=== PATIENT | female | born 1970 | race Caucasian/White ===

== ENCOUNTER 2017-01-20 21:20 | Emergency (ER) | payer BC ==
[2017-01-20 21:46] VITALS: BP 155/114
[2017-01-20] MEDS ORDERED: Morphine 4 MG/ML Syringe IVPUSH PRN (21:51)
[2017-01-20] MEDS ORDERED: Ketorolac 30 MG/ML SDV IVPUSH ONE (21:51)
[2017-01-20] MEDS ORDERED: Sodium Chloride 0.9% 1,000 ML IV ONE (21:51)
[2017-01-20] MEDS ORDERED: Ondansetron 4 MG/2 ML SDV IVPUSH ONE (21:51)
--- NOTE | 2017-01-20 22:55 | EDM.PDOC ---
[id number]: KIDNEY STONE PAIN Time Seen by Provider: 01/20/17 21:51 Source of Information: Reports: Patient History Limitations: Reports: No Limitations - History of Present Illness INITIAL COMMENTS - FREE TEXT/NARRATIVE: 46 y/o F with hx known left ureterolithiasis and scheduled lithotripsy for 4 days from now presents with uncontrolled L flank pain. Has had pain x [address] Santiago a couple of weeks ago and was diagnosed with a large ureterolithiasis by [facility]. Has been taking oxycodone which previously controlled pain. Now with severe pain x 4 hrs with no relief after oxycodone 5mg x 2 about 3 hrs ago. Pain is left sided, severe, nonradiating, no exacerbating or relieving factors. No fever. No vomiting. No dysuria or hematuria. No cough/CP /SOB. 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: oxycodone Flank Pain Score (Numeric/FACES): 8 - Related Data Allergies Allergy/AdvReac Type Severity Reaction Status Date / Time formaldehyde Allergy Rash Verified 01/20/17 21:50 Home Meds: Home Meds LORazepam [Ativan] 1 mg PO ONETIME #1 tablet 12/08/15 [Rx] Tamsulosin HCl [Flomax] 0.4 mg PO DAILY #10 cap.er.24h 12/08/15 [Rx] Topiramate [Topiramate] 50 mg PO BEDTIME 12/08/15 [History] oxyCODONE HCl/Acetaminophen [Percocet 5-325 mg Tablet] 1 - 2 each PO Q6HR PRN # 20 tablet 12/08/15 [Rx] Past Medical History - Past Health History Medical/Surgical History: Denies Medical/Surgical History HEENT History: Reports: Allergic Rhinitis, Impaired Vision Other HEENT History: Contacts Genitourinary History: Reports: Renal Calculus, Other (See Below) Other Genitourinary History: LEft flank pain and 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: Neurological History: Reports: Migraines - Infectious Disease History Infectious Disease History: Reports: Chicken Pox - Past Surgical History HEENT Surgical History: Reports: Adenoidectomy, Tonsillectomy Social & Family History - Family History Family Medical History: Noncontributory - Tobacco Use Smoking Status *Q: Current Some Day Smoker Years of Tobacco use: 30 Packs/Tins Daily: 0.2 - Caffeine Use Caffeine Use: Reports: Coffee, Energy Drinks, Soda, Tea - Alcohol Use Days Per Week of Alcohol Use: 2 Number of Drinks Per Day: 3 Total Drinks Per Week: 6 - Recreational Drug Use Recreational Drug Use: No ED ROS GENERAL - Review of Systems Review Of Systems: See Below Constitutional: Denies: Fever Respiratory: Denies: Shortness of Breath Cardiovascular: Denies: Chest Pain GI/Abdominal: Denies: Vomiting : Reports: Flank Pain. Denies: Dysuria Musculoskeletal: Reports: Back Pain ED EXAM, RENAL/ - Physical Exam Exam: See Below Exam Limited By: No Limitations General Appearance: Alert, WD/WN, Mild Distress Eye Exam: Bilateral Eye: Normal Inspection Ears: Normal External Exam Nose: Normal Inspection Throat/Mouth: Normal Inspection, Normal Voice, No Airway Compromise Head: Atraumatic, Normocephalic Neck: Normal Inspection, Supple Respiratory/Chest: No Respiratory Distress, Lungs Clear, Normal Breath Sounds Cardiovascular: Normal Peripheral Pulses, Regular Rate, Rhythm, No Edema, No Murmur GI/Abdominal: Soft, Non-Tender, No Distention. No: Rebound Back Exam: CVA Tenderness (L). No: CVA Tenderness (R) Extremities: Normal Inspection Neurological: Alert, Oriented, Normal Cognition Psychiatric: Normal Affect, Normal Mood Skin Exam: Warm, Dry, Intact, Normal Color, No Rash Course - Vital Signs Last Recorded V/S: Last Vital Signs Temp 36.9 C 01/20/17 21:40 Pulse 70 01/20/17 21:40 Resp 18 01/20/17 21:40 BP 155/114 H 01/20/17 21:40 Pulse Ox 100 01/20/17 21:40 - Orders/Labs/Meds Orders: Active Orders 24 hr Category Date Time Status Morphine Med 01/20/17 21:51 Active 4 mg IVPUSH Q2H PRN Medication Orders Morphine Sulfate (Morphine) 4 mg IVPUSH Q2H PRN PRN Reason: Pain Last Admin: 01/20/17 22:26 Dose: 4 mg Labs: Laboratory Tests 01/20/17 01/20/17 01/20/17 Range/Units 22:10 22:10 22:10 WBC 13.04 H (3.98-10.04) K/mm3 RBC 4.01 (3.98-5.22) M/mm3 Hgb 12.7 (11.2-15.7) gm/L Hct 37.7 (34.1-44.9) % MCV 94.0 (79.4-94.8) fl MCH 31.7 (25.6-32.2) pg MCHC 33.7 (32.2-35.5) g/dl RDW Std Deviation 42.4 (36.4-46.3) fL Plt Count 234 (182-369) K/mm3 MPV 10.5 (9.4-12.3) fl Neut % (Auto) 66.8 (34.0-71.1) % Lymph % (Auto) 23.0 (19.3-51.7) % [place] % (Auto) 8.6 (4.7-12.5) % Eos % (Auto) 1.2 (0.7-5.8) Baso % (Auto) 0.2 (0.1-1.2) % Neut # (Auto) 8.70 H (1.56-6.13) K/mm3 Lymph # (Auto) 3.00 (1.18-3.74) K/mm3 [place] # (Auto) 1.12 H (0.24-0.36) K/mm3 Eos # (Auto) 0.16 (0.04-0.36) K/mm3 Baso # (Auto) 0.03 (0.01-0.08) K/mm3 Sodium 140 (136-145) mEq/L Potassium 3.9 (3.5-5.1) mEq/L Chloride 108 H (98-107) mEq/L Carbon Dioxide 27 (21-32) mEq/L Anion Gap 8.9 (5-15) BUN 23 H (7-18) mg/dL Creatinine 1.2 H (0.55-1.02) mg/dL Est Cr Clr Drug Dosing 55.42 mL/min Estimated GFR (MDRD) 49 (>60) mL/min BUN/Creatinine Ratio 19.2 H (14-18) Glucose 100 (74-106) mg/dL Calcium 9.2 (8.5-10.1) mg/dL Total Bilirubin 0.2 (0.2-1.0) mg/dL AST 19 (15-37) U/L ALT 16 (14-59) U/L Alkaline Phosphatase 55 (46-116) U/L Total Protein 6.9 (6.4-8.2) g/dl Albumin 3.6 (3.4-5.0) g/dl Globulin 3.3 gm/dL Albumin/Globulin Ratio 1.1 (1-2) Urine Color Yellow (Yellow) Urine Appearance Clear (Clear) Urine pH 7.0 (5.0-8.0) Ur Specific [place] 1.020 (1.005-1.030) Urine Protein Trace H (Negative) Urine Glucose (UA) Negative (Negative) Urine Ketones Negative (Negative) Urine Occult Blood 2+ H (Negative) Urine Nitrite Negative (Negative) Urine Bilirubin Negative (Negative) Urine Urobilinogen 0.2 (0.2-1.0) Ur Leukocyte Esterase Trace H (Negative) Urine RBC 20-30 H (0-5) /hpf Urine WBC 0-5 (0-5) /hpf Ur Epithelial Cells 10-20 H (0-5) /hpf Amorphous Sediment Moderate H (NOT SEEN) /hpf Urine Bacteria Moderate H (FEW) /hpf Urine Mucus Not seen (FEW) /hpf Meds: Medications Generic Name Dose Route Start Last Admin Trade Name Freq PRN Reason Stop Dose Admin Morphine Sulfate 4 mg 01/20/17 21:51 01/20/17 22:26 Morphine IVPUSH 4 mg Q2H PRN Administration Pain Discontinued Medications Generic Name Dose Route Start Last Admin Trade Name Freq PRN Reason Stop Dose Admin Sodium Chloride 1,000 mls @ 1,000 mls/hr 01/20/17 21:51 01/20/17 22:22 Normal Saline IV 01/20/17 22:50 1,000 mls/hr ONETIME ONE Administration Ketorolac Tromethamine 30 mg 01/20/17 21:51 01/20/17 22:25 Toradol IVPUSH 01/20/17 21:52 30 mg ONETIME ONE Administration Ondansetron HCl 4 mg 01/20/17 21:51 01/20/17 22:22 Zofran IVPUSH 01/20/17 21:52 4 mg ONETIME ONE Administration - Re-Assessments/Exams Free Text/Narrative Re-Assessment/Exam: 01/20/17 23:16 Labs show wbc 13 but no left shift, creatinine 1.2, + microscopic hematuria, no evidence of urinary infection. Patient feels much better after torodol, morphine, and IVF. Would like to go home. Has lithotripsy scheduled with Dr. Santiago for this week . Has adequate supply of pain meds at home. Discussed return precautions. Departure - Departure Time of Disposition: 22:54 Disposition: Home, Self-Care Clinical Impression: Ureterolithiasis - Discharge Information Instructions: Kidney Stones Referrals: Shelby Frazier PA-C [Primary Care Provider] - Forms: ED Department Discharge Additional Instructions: 1. Follow up with Dr. Santiago this week as planned 2. Continue your usual home medications for pain 3. Return to the ED if you have worsening severe pain, fever, vomiting without keeping fluids down, or other concerning symptoms - My Orders Last 24 Hours: My Active Orders 01/20/17 21:51 Morphine 4 mg IVPUSH Q2H PRN - Assessment/Plan Last 24 Hours: My Active Orders 01/20/17 21:51 Morphine 4 mg IVPUSH Q2H PRN
== END 2017-01-20 23:00 | disposition home or self-care (01) ==
LOC: JD.ED 21:20
DX: N20.1 Calculus of ureter (principal); F17.210 Nicotine dependence, cigarettes, uncomplicated; Z79.899 Other long term (current) drug therapy; Z88.8 Allergy status to other drugs, medicaments and biological substances; Z87.442 Personal history of urinary calculi; Z98.890 Other specified postprocedural states
CPT/HCPCS: 36415; 80053; 81001; 85025; 96361; 96374; 96375; 99284; J1885; J2270; J2405; J7040

== ENCOUNTER 2019-09-01 14:06 | Emergency (ER) | payer OTHER ==
[2019-09-01] MEDS ORDERED: Sodium Chloride 0.9% 10 ML Syringe FLUSH PRN (14:32)
[2019-09-01] MEDS ORDERED: Ketorolac 30 MG/ML SDV IVPUSH ONE (14:35)
[2019-09-01] MEDS ORDERED: Ondansetron 4 MG/2 ML SDV IVPUSH ONE (14:35)
[2019-09-01] MEDS ORDERED: HYDROmorphone 0.5 MG/0.5 ML Syringe IVPUSH ONE (14:35)
--- NOTE | 2019-09-01 14:42 | EDM.PDOC ---
ED HPI GENERAL MEDICAL PROBLEM - General Chief Complaint: Flank Pain Stated Complaint: flank pain Time Seen by Provider: 09/01/19 14:12 Source of Information: Reports: Patient History Limitations: Reports: No Limitations - History of Present Illness INITIAL COMMENTS - FREE TEXT/NARRATIVE: Patient is a 48-year-old female who presents with complaints of left-sided flank pain that began last night. She describes it as a constant pain, however does occasionally worsen and then let up. She has a history of kidney stones and states that this feels similar to her kidney stones in the past. Denies any blood in her urine. States she has felt cold over the last couple days, however denies any known fever. She has been nauseous with no vomiting or diarrhea. Left Flank Pain Score (Numeric/FACES): 8 - Related Data Allergies Allergy/AdvReac Type Severity Reaction Status Date / Time formaldehyde Allergy Rash Verified 03/31/18 13:01 Home Meds: Home Meds Topiramate 100 mg PO BID 12/08/15 [History] Acetaminophen/oxyCODONE [Percocet 325-5 MG] 1 each PO Q4H PRN #10 tab 09/01/19 [ Rx] Ondansetron [Zofran ODT] 4 mg PO Q6H PRN #10 tab.dis 09/01/19 [Rx] Tamsulosin [Tamsulosin 24 Hr] 0.4 mg PO DAILY #14 cap.er 09/01/19 [Rx] traMADol [Ultram] 50 mg PO Q4H PRN #15 tab 09/01/19 [Rx] Past Medical History - Past Health History Medical/Surgical History: Denies Medical/Surgical History HEENT History: Reports: Allergic Rhinitis, Impaired Vision Other HEENT History: Contacts Genitourinary History: Reports: Renal Calculus, Other (See Below) Other Genitourinary History: LEft flank pain and blood in urine [employer]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 ED EXAM,LOWER BACK PAIN/INJURY - Physical Exam Exam: See Below Exam Limited By: No Limitations General Appearance: Alert, WD/WN, No Apparent Distress Respiratory/Chest: No Respiratory Distress, Lungs Clear, Normal Breath Sounds, No Accessory Muscle Use, Chest Non-Tender Cardiovascular: Normal Peripheral Pulses, Regular Rate, Rhythm, No Edema, No Gallop, No JVD, No Murmur, No Rub Back Exam: Normal Inspection, Full Range of Motion, CVA Tenderness (L). No: CVA Tenderness (R) Neurological: Alert, Normal Mood/Affect, Normal Dorsiflexion, CN II-XII Intact, Normal Plantar Flexion, Normal Gait, Normal Reflexes, No Motor/Sensory Deficits , Oriented x 3 Psychiatric: Normal Affect, Normal Mood Skin Exam: Warm, Dry, Intact, Normal Color, No Rash Course - Vital Signs Last Recorded V/S: Last Vital Signs Temp 98.1 F 09/01/19 14:22 Pulse 84 09/01/19 14:22 Resp 16 09/01/19 14:22 BP 144/107 H 09/01/19 14:22 Pulse Ox 100 09/01/19 14:22 - Orders/Labs/Meds Orders: Active Orders 24 hr Category Date Time Status Peripheral IV Care [RC] . DIRECTED Care 09/01/19 14:32 Active Sodium Chloride 0.9% [Normal Saline] 1,000 ml Med 09/01/19 14:45 Active IV ASDIRECTED Sodium Chloride 0.9% [Saline Flush] Med 09/01/19 14:32 Active 10 ml FLUSH ASDIRECTED PRN Peripheral IV Insertion Adult [OM.PC] Stat Oth 09/01/19 14:32 Ordered Medication Orders Sodium Chloride (Normal Saline) 1,000 mls @ 999 mls/hr IV ASDIRECTED RAJWINDER Last Admin: 09/01/19 14:52 Dose: 999 mls/hr Sodium Chloride (Saline Flush) 10 ml FLUSH ASDIRECTED PRN PRN Reason: Keep Vein Open Last Admin: 09/01/19 14:25 Dose: 10 ml Labs: Laboratory Tests 09/01/19 09/01/19 09/01/19 Range/Units 14:15 14:25 14:25 WBC 14.79 H (3.98-10.04) K/mm3 RBC 4.44 (3.98-5.22) M/mm3 Hgb 14.0 (11.2-15.7) gm/dl Hct 42.4 (34.1-44.9) % MCV 95.5 H (79.4-94.8) fl MCH 31.5 (25.6-32.2) pg MCHC 33.0 (32.2-35.5) g/dl RDW Std Deviation 44.9 (36.4-46.3) fL Plt Count 306 (182-369) K/mm3 MPV 10.6 (9.4-12.3) fl Neut % (Auto) 75.6 H (34.0-71.1) % Lymph % (Auto) 14.1 L (19.3-51.7) % [place] % (Auto) 8.9 (4.7-12.5) % Eos % (Auto) 1.0 (0.7-5.8) Baso % (Auto) 0.2 (0.1-1.2) % Neut # (Auto) 11.17 H (1.56-6.13) K/mm3 Lymph # (Auto) 2.09 (1.18-3.74) K/mm3 [place] # (Auto) 1.32 H (0.24-0.36) K/mm3 Eos # (Auto) 0.15 (0.04-0.36) K/mm3 Baso # (Auto) 0.03 (0.01-0.08) K/mm3 Manual Slide Review Normal smear Sodium 141 (136-145) mEq/L Potassium 3.5 (3.5-5.1) mEq/L Chloride 107 (98-107) mEq/L Carbon Dioxide 22 (21-32) mEq/L Anion Gap 15.5 H (5-15) BUN 15 (7-18) mg/dL Creatinine 1.1 H (0.55-1.02) mg/dL Est Cr Clr Drug Dosing 56.59 mL/min Estimated GFR (MDRD) 53 (>60) mL/min BUN/Creatinine Ratio 13.6 L (14-18) Glucose 91 (74-106) mg/dL Calcium 9.0 (8.5-10.1) mg/dL Total Bilirubin 0.4 (0.2-1.0) mg/dL AST 20 (15-37) U/L ALT 22 (14-59) U/L Alkaline Phosphatase 71 (46-116) U/L C-Reactive Protein 1.0 (<1.0) mg/dL Total Protein 7.5 (6.4-8.2) g/dl Albumin 4.1 (3.4-5.0) g/dl Globulin 3.4 gm/dL Albumin/Globulin Ratio 1.2 (1-2) Urine Color Yellow (Yellow) Urine Appearance Clear (Clear) Urine pH 6.5 (5.0-8.0) Ur Specific [place] 1.025 (1.005-1.030) Urine Protein Negative (Negative) Urine Glucose (UA) Negative (Negative) Urine Ketones Negative (Negative) Urine Occult Blood 2+ H (Negative) Urine Nitrite Negative (Negative) Urine Bilirubin Negative (Negative) Urine Urobilinogen 0.2 (0.2-1.0) Ur Leukocyte Esterase Negative (Negative) Urine RBC 40-50 H (0-5) /hpf Urine WBC 0-5 (0-5) /hpf Ur Squamous Epith Cells 5-10 H (0-5) /hpf Urine Bacteria Few (FEW) /hpf Urine Mucus Not seen (FEW) /hpf Meds: Medications Generic Name Dose Route Start Last Admin Trade Name Freq PRN Reason Stop Dose Admin Sodium Chloride 1,000 mls @ 999 mls/hr 09/01/19 14:45 09/01/19 14:52 Normal Saline IV 999 mls/hr ASDIRECTED RAJWINDER Administration Sodium Chloride 10 ml 09/01/19 14:32 09/01/19 14:25 Saline Flush FLUSH 10 ml ASDIRECTED PRN Administration Keep Vein Open Discontinued Medications Generic Name Dose Route Start Last Admin Trade Name Freq PRN Reason Stop Dose Admin Hydromorphone HCl 0.5 mg 09/01/19 14:35 09/01/19 14:50 Dilaudid IVPUSH 09/01/19 14:36 0.5 mg ONETIME ONE Administration Ketorolac Tromethamine 30 mg 09/01/19 14:35 09/01/19 14:48 Toradol IVPUSH 09/01/19 14:36 30 mg ONETIME ONE Administration Ondansetron HCl 4 mg 09/01/19 14:35 09/01/19 14:46 Zofran IVPUSH 09/01/19 14:36 4 mg ONETIME ONE Administration Tamsulosin HCl 0.4 mg 09/01/19 16:18 Flomax PO 09/01/19 16:19 ONETIME ONE - Re-Assessments/Exams Free Text/Narrative Re-Assessment/Exam: 09/01/19 16:09 Hematology was grossly unremarkable. Urine was positive for occult blood but negative for any signs of infection. CT of the abdomen pelvis shows a 6.3 mm obstructing stone within the proximal left ureter near the UPJ. Discussed these findings with the patient. She states that she thinks her last stone that had any lithotripsy was around [address] Santiago was the urologist who assisted her with this. Discussed that it is a possibility that she may not be able to pass the stone on her own. Recommend that she call to schedule an appointment with Dr. Santiago when his office opens tomorrow. I will send a prescription for Percocet for pain, Zofran for nausea, and Flomax.. 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 I will also send a prescription for tramadol. Discharge instructions as documented. Departure - Departure Time of Disposition: 16:11 Disposition: Home, Self-Care 01 Condition: Fair Clinical Impression: Kidney stone - Discharge Information *PRESCRIPTION DRUG MONITORING PROGRAM REVIEWED*: No *COPY OF PRESCRIPTION DRUG MONITORING REPORT IN PATIENT VANNA: No Prescriptions: Acetaminophen/oxyCODONE [Percocet 325-5 MG] 1 each PO Q4H PRN #10 tab PRN Reason: Pain Ondansetron [Zofran ODT] 4 mg PO Q6H PRN #10 tab.dis PRN Reason: Nausea/Vomiting Tamsulosin [Tamsulosin 24 Hr] 0.4 mg PO DAILY #14 cap.er traMADol [Ultram] 50 mg PO Q4H PRN #15 tab PRN Reason: Pain Instructions: Kidney Stones, [id number] Referrals: Marianela Lee NP [Primary Care Provider] - Jessee Santiago MD [Physician] - Forms: ED Department Discharge Additional Instructions: You were seen in the emergency department today for left-sided flank pain that worsened last night. CT does show a 6.3 mm obstructing stone in your left ureter near the kidney. Prescriptions for Percocet, tramadol, Zofran, and Flomax have been sent to [facility] in [place]. Take these medications as prescribed; however, ensure that you are not taking the Percocet and tramadol together. Do not drive for 12 hours after taking the Percocet or tramadol. You may also use [id number] ibuprofen as needed. You have been provided with a urine strainer. Strain your urine each time you go to see if the stone passes. As we discussed, you may be able to pass the stone on your own, however there is a definite possibility that it may require intervention to be removed. I recommend that you call Dr. Eloy Clay's office tomorrow morning to schedule a follow-up appointment. If you should experience any worsening symptoms, please do not hesitate to return to the emergency department. Sepsis Event Note - Evaluation Sepsis Screening Result: No Definite Risk - Focused Exam Vital Signs: Vital Signs Temp Pulse Resp BP Pulse Ox 09/01/19 14:22 98.1 F 84 16 144/107 H 100 Date Exam was Performed: 09/01/19 Time Exam was Performed: 16:20 - My Orders Last 24 Hours: My Active Orders 09/01/19 14:32 Peripheral IV Care [RC] . DIRECTED Sodium Chloride 0.9% [Saline Flush] 10 ml FLUSH ASDIRECTED PRN Peripheral IV Insertion Adult [OM.PC] Stat 09/01/19 14:45 Sodium Chloride 0.9% [Normal Saline] 1,000 ml IV ASDIRECTED - Assessment/Plan Last 24 Hours: My Active Orders 09/01/19 14:32 Peripheral IV Care [RC] . DIRECTED Sodium Chloride 0.9% [Saline Flush] 10 ml FLUSH ASDIRECTED PRN Peripheral IV Insertion Adult [OM.PC] Stat 09/01/19 14:45 Sodium Chloride 0.9% [Normal Saline] 1,000 ml IV ASDIRECTED
[2019-09-01] MEDS ORDERED: Sodium Chloride 0.9% 1,000 ML IV SCH (14:45)
--- NOTE | 2019-09-01 15:40 | CT ---
CT abdomen and pelvis Technique: Multiple axial sections were obtained from above the dome of the diaphragm inferiorly through the pubic symphysis. Intravenous and oral contrast not utilized. Study has been performed as a ureteral stone protocol. Findings: Obstructing stone is noted within the proximal left ureter near the UPJ measuring 6.3 mm. This finding causes proximal hydronephrosis. Inflammatory change is seen around the left kidney compatible with the obstruction. Multiple small nonobstructing calculi are also seen within the left kidney. Right kidney shows no abnormal calcifications. Visualized lung bases are clear. Noncontrast appearance of the liver shows no focal abnormality. Gallbladder contains no calcified gallstones. Adrenal glands show no nodule. Pancreas shows no discrete abnormality. Aorta shows no aneurysm. No retroperitoneal adenopathy or mesenteric abnormality is seen. Appendix is seen which is normal in size. No pelvic mass or adenopathy is noted. Bone window settings were reviewed which appear within normal limits for the patient's age. Impression: 1. 6.3 mm obstructing stone within the proximal left ureter near the UPJ. This causes proximal hydronephrosis. 2. Multiple small nonobstructing calculi within the left kidney. 3. No other acute finding is seen. Diagnostic code #3 Study was dictated in MDT
[2019-09-01] MEDS ORDERED: Tamsulosin 0.4 MG Cap.ER PO ONE (16:18)
[2019-09-01 16:36] VITALS: BP 96/76; PULSE 62
== END 2019-09-01 16:30 | disposition home or self-care (01) ==
LOC: JD.ED 14:06
DX: N13.2 Hydronephrosis with renal and ureteral calculous obstruction (principal); F17.210 Nicotine dependence, cigarettes, uncomplicated; Z79.899 Other long term (current) drug therapy; Z88.8 Allergy status to other drugs, medicaments and biological substances
CPT/HCPCS: 36415; 74176; 80053; 81001; 85025; 86140; 96361; 96374; 96375; 99284; A9270; J1170; J1885; J2405; J7030

== ENCOUNTER 2020-07-11 14:45 | Emergency (ER) | payer BC, OTHER ==
[2020-07-11 15:13] VITALS: BP 175/124; PULSE 65
[2020-07-11] MEDS ORDERED: HYDROmorphone 0.5 MG/0.5 ML Syringe IVPUSH ONE ×2 (15:29→16:55)
[2020-07-11] MEDS ORDERED: Sodium Chloride 0.9% 10 ML Syringe FLUSH PRN (15:29)
--- NOTE | 2020-07-11 15:33 | EDM.PDOC ---
ED HPI GENERAL MEDICAL PROBLEM - General Chief Complaint: Flank Pain Stated Complaint: KIDNEY PAIN Time Seen by Provider: 07/11/20 15:21 Source of Information: Reports: Patient, RN Notes Reviewed - History of Present Illness INITIAL COMMENTS - FREE TEXT/NARRATIVE: 49 yr old female with onset of R back and flank pain this past morning that continues this afternoon with mild radiation towards R groin. Pain is quite severe. Does not go the L abd or back. No fever or chills. Right Flank Pain Score (Numeric/FACES): 8 - Related Data Allergies Allergy/AdvReac Type Severity Reaction Status Date / Time formaldehyde Allergy Rash Verified 07/11/20 15:12 Home Meds: Home Meds Topiramate 100 mg PO BID 12/08/15 [History] Acetaminophen/HYDROcodone [[place] 325-5 MG] 1 tab PO Q6H PRN #20 tablet 07/11/20 [Rx] Ondansetron [Zofran ODT] 4 mg PO Q8HR PRN #7 tab.dis 07/11/20 [Rx] Past Medical History - Past Health History Medical/Surgical History: Denies Medical/Surgical History HEENT History: Reports: Allergic Rhinitis, Impaired Vision Other HEENT History: Contacts Genitourinary History: Reports: Renal Calculus, Other (See Below) Other Genitourinary History: LEft flank pain and blood in urine 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: Neurological History: Reports: Migraines - Infectious Disease History Infectious Disease History: Reports: Chicken Pox - Past Surgical History HEENT Surgical History: Reports: Adenoidectomy, Tonsillectomy Social & Family History - Family History Family Medical History: No Pertinent Family History - Caffeine Use Caffeine Use: Reports: None ED ROS GENERAL - Review of Systems Review Of Systems: See Below Constitutional: Denies: Fever, Chills, Diaphoresis HEENT: Reports: No Symptoms Respiratory: Reports: No Symptoms Cardiovascular: Reports: No Symptoms GI/Abdominal: Reports: Abdominal Pain (moderate R flank) : Reports: Frequency Musculoskeletal: Reports: Back Pain Skin: Reports: No Symptoms Neurological: Reports: No Symptoms ED EXAM, RENAL/ - Physical Exam Exam: See Below General Appearance: Alert, Moderate Distress Head: Atraumatic Neck: Supple Respiratory/Chest: No Respiratory Distress, Lungs Clear, Normal Breath Sounds Cardiovascular: Regular Rate, Rhythm GI/Abdominal: Soft, Non-Tender. No: Guarding Back Exam: CVA Tenderness (R) Neurological: Alert, Oriented, No Motor/Sensory Deficits Skin Exam: Warm, Dry, Normal Color Course - Vital Signs Last Recorded V/S: Last Vital Signs Temp 96.3 F L 07/11/20 15:10 Pulse 65 07/11/20 15:10 Resp 16 07/11/20 15:10 BP 175/124 H 07/11/20 15:10 Pulse Ox 100 07/11/20 15:10 - Orders/Labs/Meds Orders: Active Orders 24 hr Category Date Time Status Peripheral IV Insertion Adult [OM.PC] Stat Oth 07/11/20 15:29 Ordered Labs: Laboratory Tests 07/11/20 Range/Units 15:45 Urine Color Yellow (Yellow) Urine Appearance Slt cloudy H (Clear) Urine pH 5.5 (5.0-8.0) Ur Specific [place] > or = 1.030 (1.005-1.030) Urine Protein 1+ H (Negative) Urine Glucose (UA) Negative (Negative) Urine Ketones Negative (Negative) Urine Occult Blood 3+ H (Negative) Urine Nitrite Negative (Negative) Urine Bilirubin Negative (Negative) Urine Urobilinogen 0.2 (0.2-1.0) Ur Leukocyte Esterase Negative (Negative) Urine RBC >100 H (0-5) /hpf Urine WBC 0-5 (0-5) /hpf Ur Squamous Epith Cells 5-10 H (0-5) /hpf Urine Bacteria Moderate H (FEW) /hpf Urine Mucus Few (FEW) /hpf Meds: Medications Discontinued Medications Generic Name Dose Route Start Last Admin Trade Name Adrienne PRN Reason Stop Dose Admin Hydromorphone HCl 0.5 mg 07/11/20 15:29 07/11/20 15:43 Dilaudid IVPUSH 07/11/20 15:30 0.5 mg ONETIME ONE Administration Hydromorphone HCl 0.5 mg 07/11/20 16:55 07/11/20 17:02 Dilaudid IVPUSH 07/11/20 16:56 0.5 mg ONETIME ONE Administration Sodium Chloride 10 ml 07/11/20 15:29 07/11/20 15:44 Saline Flush FLUSH 10 ml ASDIRECTED PRN Administration Keep Vein Open - Re-Assessments/Exams Free Text/Narrative Re-Assessment/Exam: 07/12/20 07:[address] shows 4.5 to 5 mm stone R UVJ. Fairly good relief of pain from dilaudid IV. Departure - Departure Time of Disposition: 17:07 Disposition: Home, Self-Care 01 Condition: Fair Clinical Impression: Kidney stone on right side, Ureteral calculus - Discharge Information Prescriptions: Acetaminophen/HYDROcodone [[place] 325-5 MG] 1 tab PO Q6H PRN #20 tablet PRN Reason: Pain Ondansetron [Zofran ODT] 4 mg PO Q8HR PRN #7 tab.dis PRN Reason: Nausea/Vomiting Instructions: Kidney Stones, [id number] Referrals: Marianela Lee BLOCK CUTTER [Primary Care Provider] - Forms: ED Department Discharge Additional Instructions: Strain urine to watch for stone. Tylenol for mild to moderate pain or hydrocodone if needed for severe pain. Zofran if needed for nausea or vomiting. Prescriptions have been sent to [facility]. Call Dr Santiago's office in AM if you have not passed the stone by morning. Try see Dr Santiago in the next 2 to 3 days. Return to ED as needed if symptoms worsening in any way. Sepsis Event Note (ED) - Evaluation Sepsis Screening Result: No Definite Risk - My Orders Last 24 Hours: My Active Orders 07/11/20 15:29 Peripheral IV Insertion Adult [OM.PC] Stat - Assessment/Plan Last 24 Hours: My Active Orders 07/11/20 15:29 Peripheral IV Insertion Adult [OM.PC] Stat
--- NOTE | 2020-07-11 16:09 | CT ---
CT abdomen and pelvis Technique: Multiple axial sections were obtained from above the dome of the diaphragm inferiorly through the pubic symphysis. Intravenous normal contrast was not utilized. Study has been performed as a ureteral stone protocol. Findings: Right ureter is prominently dilated down to the bladder. Findings are caused by an obstructing stone at the UVJ measuring approximately 4.5-5 mm. No other ureteral calculi are appreciated. Several calcifications are seen within both kidneys compatible with nonobstructing calculi. Visualized lung bases show nothing acute. Liver contains no focal parenchymal abnormality. Spleen appears normal. Adrenal glands show no nodule. Pancreas shows no discrete abnormality. Gallbladder contains no calcified gallstones. Aorta shows no aneurysm. No retroperitoneal adenopathy or mesenteric abnormalities are appreciated. No pelvic mass or adenopathy is noted. Appendix is not definitely visualized. Bone window settings were reviewed which show no acute osseous finding. Impression: 1. Prominently dilated right ureter down to the bladder caused by a 4.5-5 mm obstructing stone at the UVJ. 2. Several small nonobstructing calculi within both kidneys. 3. No other acute abnormality is identified. Diagnostic code #3
== END 2020-07-11 17:21 | disposition home or self-care (01) ==
LOC: JD.ED 14:45
DX: N20.2 Calculus of kidney with calculus of ureter (principal); Z88.8 Allergy status to other drugs, medicaments and biological substances
CPT/HCPCS: 74176; 81001; 96374; 96376; 99284; J1170

== ENCOUNTER 2021-01-25 16:32 | Emergency (ER) | payer BC ==
[2021-01-25 16:41] VITALS: BP 169/114; PULSE 75
[2021-01-25] MEDS ORDERED: HYDROmorphone 1 MG/ML Syringe IVPUSH STA (16:50)
[2021-01-25] MEDS ORDERED: Sodium Chloride 0.9% 1,000 ML IV ONE (16:50)
[2021-01-25] MEDS ORDERED: Ondansetron 4 MG/2 ML SDV IVPUSH ONE ×2 (16:50→18:30)
[2021-01-25] MEDS ORDERED: Sodium Chloride 0.9% 10 ML Syringe FLUSH PRN (16:51)
--- NOTE | 2021-01-25 16:57 | EDM.PDOC ---
ED HPI GENERAL MEDICAL PROBLEM - General Chief Complaint: Flank Pain Stated Complaint: KIDNEY STONE Time Seen by Provider: 01/25/21 16:42 Source of Information: Reports: Patient, RN Notes Reviewed History Limitations: Reports: No Limitations - History of Present Illness INITIAL COMMENTS - FREE TEXT/NARRATIVE: Patient is a 50-year-old female who presents to the ER for the evaluation of right-sided flank pain. Patient notes she has a history of kidney stones, and that she has had to have lithotripsy done in the past. Patient notes that she developed symptoms of kidney stones roughly 2 days ago, and she has been trying to deal with this at home, she has had some leftover pain meds that she has been taking for pain management. States that she started peeing quite a bit of blood earlier today, and this necessitated her visit to the ER. She is having some bladder fullness, pressure, and worsening urinary symptoms. She has had no fever but is complaining of chills, she is having some nausea without vomiting, not had any diarrhea, and has not having issues with constipation. Right Flank Pain Score (Numeric/FACES): 9 - Related Data Allergies Allergy/AdvReac Type Severity Reaction Status Date / Time formaldehyde Allergy Rash Verified 01/25/21 16:42 Home Meds: Home Meds Topiramate 100 mg PO BID 12/08/15 [History] Acetaminophen/oxyCODONE [Percocet 325-5 MG] 1 each PO Q6H PRN #20 tab 01/25/21 [Rx] Ibuprofen 600 mg PO Q6H PRN #30 tablet 01/25/21 [Rx] Ondansetron [Zofran ODT] 4 mg PO Q8H PRN #15 tab.dis 01/25/21 [Rx] Tamsulosin HCl [Flomax] 0.4 mg PO DAILY #7 cap.er.24h 01/25/21 [Rx] Past Medical History - Past Health History Medical/Surgical History: Denies Medical/Surgical History HEENT History: Reports: Allergic Rhinitis, Impaired Vision Other HEENT History: Contacts Genitourinary History: Reports: Renal Calculus, Other (See Below) Other Genitourinary History: LEft flank pain and blood in urine 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: Neurological History: Reports: Migraines - Infectious Disease History Infectious Disease History: Reports: Chicken Pox - Past Surgical History HEENT Surgical History: Reports: Adenoidectomy, Tonsillectomy Female Surgical History: Reports: None Social & Family History - Family History Family Medical History: No Pertinent Family History - Tobacco Use Tobacco Use Status *Q: Current Every Day Tobacco User Years of Tobacco use: 30 Packs/Tins Daily: 0.5 - Caffeine Use Caffeine Use: Reports: None - Recreational Drug Use Recreational Drug Use: No ED ROS GENERAL - Review of Systems Review Of Systems: Comprehensive ROS is negative, except as noted in HPI. ED EXAM, RENAL/ - Physical Exam Exam: See Below Exam Limited By: No Limitations General Appearance: Alert, WD/WN, No Apparent Distress Respiratory/Chest: No Respiratory Distress, Lungs Clear, Normal Breath Sounds, No Accessory Muscle Use, Chest Non-Tender GI/Abdominal: Normal Bowel Sounds, Soft, Non-Tender, No Distention, No Mass Back Exam: Normal Inspection, Full Range of Motion. No: CVA Tenderness (L), CVA Tenderness (R) Extremities: Normal Inspection, Normal Capillary Refill Neurological: Alert, Oriented, Normal Cognition, No Motor/Sensory Deficits Psychiatric: Normal Affect, Normal Mood Skin Exam: Warm, Dry, Intact, Normal Color, No Rash Course - Vital Signs Last Recorded V/S: Last Vital Signs Temp 97 F 01/25/21 16:39 Pulse 75 01/25/21 16:39 Resp 16 01/25/21 16:39 BP 169/114 H 01/25/21 16:39 Pulse Ox 100 01/25/21 16:39 - Orders/Labs/Meds Orders: Active Orders 24 hr Category Date Time Status Peripheral IV Care [RC] . DIRECTED Care 01/25/21 16:51 Ordered Strain Urine [RC] ASDIRECTED Care 01/25/21 16:50 Ordered CULTURE URINE [MREF] Urgent Lab 01/25/21 17:23 Ordered Sodium Chloride 0.9% [Saline Flush] Med 01/25/21 16:51 Ordered 10 ml FLUSH ASDIRECTED PRN Peripheral IV Insertion Adult [OM.PC] Routine Oth 01/25/21 16:51 Ordered Medication Orders Sodium Chloride (Sodium Chloride 0.9% 10 Ml Syringe) 10 ml FLUSH ASDIRECTED PRN PRN Reason: Keep Vein Open Last Admin: 01/25/21 17:41 Dose: 10 ml Documented by: SANDBLA Labs: Laboratory Tests 01/25/21 01/25/21 01/25/21 Range/Units 16:40 16:40 16:47 WBC 9.87 (3.98-10.04) K/mm3 RBC 4.10 (3.98-5.22) M/mm3 Hgb 13.2 (11.2-15.7) gm/dl Hct 40.4 (34.1-44.9) % MCV 98.5 H (79.4-94.8) fl MCH 32.2 (25.6-32.2) pg MCHC 32.7 (32.2-35.5) g/dl RDW Std Deviation 46.5 H (36.4-46.3) fL Plt Count 287 (182-369) K/mm3 MPV 10.2 (9.4-12.3) fl Neut % (Auto) 56.1 (34.0-71.1) % Lymph % (Auto) 33.0 (19.3-51.7) % [place] % (Auto) 8.6 (4.7-12.5) % Eos % (Auto) 1.8 (0.7-5.8) Baso % (Auto) 0.4 (0.1-1.2) % Neut # (Auto) 5.53 (1.56-6.13) K/mm3 Lymph # (Auto) 3.26 (1.18-3.74) K/mm3 [place] # (Auto) 0.85 H (0.24-0.36) K/mm3 Eos # (Auto) 0.18 (0.04-0.36) K/mm3 Baso # (Auto) 0.04 (0.01-0.08) K/mm3 Sodium 145 (136-145) mEq/L Potassium 3.6 (3.5-5.1) mEq/L Chloride 112 H (98-107) mEq/L Carbon Dioxide 19 L (21-32) mEq/L Anion Gap 17.6 H (5-15) BUN 16 (7-18) mg/dL Creatinine 0.9 (0.55-1.02) mg/dL Est Cr Clr Drug Dosing 70.78 mL/min Estimated GFR (MDRD) > 60 (>60) mL/min BUN/Creatinine Ratio 17.8 (14-18) Glucose 96 (70-99) mg/dL Calcium 8.7 (8.5-10.1) mg/dL Total Bilirubin 0.2 (0.2-1.0) mg/dL AST 11 L (15-37) U/L ALT 18 (14-59) U/L Alkaline Phosphatase 69 (46-116) U/L Total Protein 7.0 (6.4-8.2) g/dl Albumin 3.6 (3.4-5.0) g/dl Globulin 3.4 gm/dL Albumin/Globulin Ratio 1.1 (1-2) Urine Color Inocencia H (Yellow) Urine Appearance Cloudy H (Clear) Urine pH 6.0 (5.0-8.0) Ur Specific [place] > or = 1.030 (1.005-1.030) Urine Protein 1+ H (Negative) Urine Glucose (UA) Negative (Negative) Urine Ketones Negative (Negative) Urine Occult Blood 3+ H (Negative) Urine Nitrite Negative (Negative) Urine Bilirubin 1+ H (Negative) Urine Urobilinogen 0.2 (0.2-1.0) Ur Leukocyte Esterase Negative (Negative) Urine RBC >100 H (0-5) /hpf Urine WBC 0-5 (0-5) /hpf Ur Squamous Epith Cells 5-10 H (0-5) /hpf Urine Bacteria Moderate H (FEW) /hpf Urine Mucus Few (FEW) /hpf Meds: Medications Generic Name Dose Route Start Last Admin Trade Name Adrienne PRN Reason Stop Dose Admin Sodium Chloride 10 ml 01/25/21 16:51 01/25/21 17:41 Sodium Chloride 0.9% 10 Ml Syringe FLUSH 10 ml ASDIRECTED PRN Administration Keep Vein Open Discontinued Medications Generic Name Dose Route Start Last Admin Trade Name Adrienne PRN Reason Stop Dose Admin Hydromorphone HCl 1 mg 01/25/21 16:50 01/25/21 17:41 Hydromorphone 1 Mg/Ml Syringe IVPUSH 01/25/21 16:51 1 mg ONETIME STA Administration Sodium Chloride 1,000 mls @ 999 mls/hr 01/25/21 16:50 01/25/21 17:41 Normal Saline IV 01/25/21 17:50 999 mls/hr ASDIRECTED ONE Administration Ketorolac Tromethamine 30 mg 01/25/21 18:19 Ketorolac 30 Mg/Ml Sdv IVPUSH 01/25/21 18:20 ONETIME ONE Ondansetron HCl 4 mg 01/25/21 16:50 01/25/21 17:40 Ondansetron 4 Mg/2 Ml Sdv IVPUSH 01/25/21 16:51 4 mg ONETIME ONE Administration Ondansetron HCl 4 mg 01/25/21 18:30 Ondansetron 4 Mg/2 Ml Sdv IVPUSH 01/25/21 18:31 ONETIME ONE Tamsulosin HCl 0.4 mg 01/25/21 17:21 01/25/21 17:41 Tamsulosin 0.4 Mg Cap.Er PO 01/25/21 17:22 0.4 mg ONETIME ONE Administration - Re-Assessments/Exams Free Text/Narrative Re-Assessment/Exam: 01/25/21 17:20 Patient presents to the ER for the evaluation of a possible kidney stone, we will go ahead get a CT, get some basic labs, give her some pain meds and some fluids for initial management. 01/25/21 17:23 Initial labs have resulted for the most part, CBC is unremarkable for infection at this time, urinalysis demonstrates gross hematuria with 3+ occult blood, with over 100 red blood cells per high-power field. Nitrites negative, leukocyte esterase negative, but a moderate amount of urine bacteria. 01/25/21 18:31 CT report demonstrates a 6 mm stone within the distal right ureter, that seems to be obstructing, it is approximately 2 cm from the UVJ. There is also a 4 mm stone within the right renal pelvis. There is another larger stone within her left kidney, measuring 8 mm, and 2 other small stones, within the right kidney measuring 1.5 to 2 mm. I was able to discuss these findings with urology at [facility] and [facility] [place] in [place]. Unfortunately urology at [facility] is quite a ways out for scheduling purposes for follow-up, so I was able to talk with Dr. Sanchez at [facility] [place], and he thinks that the patient can be seen by his nurse practitioner on Saturday for evaluation. In the meantime I will go ahead and give the patient some tablets of Flomax, Percocet, ibuprofen and Zofran for management. She was directed to return to the ER strictly if she should develop any fever, or any sort of not being able to urinate. Patient verbalized understanding. Departure - Departure Time of Disposition: 18:34 Disposition: Home, Self-Care 01 Condition: Good Clinical Impression: Urinary tract obstruction due to kidney stone - Discharge Information *PRESCRIPTION DRUG MONITORING PROGRAM REVIEWED*: Yes *COPY OF PRESCRIPTION DRUG MONITORING REPORT IN PATIENT VANNA: No Prescriptions: Tamsulosin HCl [Flomax] 0.4 mg PO DAILY #7 cap.er.24h Ibuprofen 600 mg PO Q6H PRN #30 tablet PRN Reason: Pain Acetaminophen/oxyCODONE [Percocet 325-5 MG] 1 each PO Q6H PRN #20 tab PRN Reason: Pain Ondansetron [Zofran ODT] 4 mg PO Q8H PRN #15 tab.dis PRN Reason: Nausea Instructions: Dietary Guidelines to Help Prevent Kidney Stones Referrals: Jammie Sanchez MD [Ordering Only Provider] - 01/30/21 (for follow with CAREER INFORMATION SPECIALIST Tatum Loredo.) Forms: ED Department Discharge Additional Instructions: You were evaluated in the ER today for your right-sided flank pain. Your urinalysis did demonstrate some blood in urine, which is suggestive of a kidney stone at this time. A CT was done at this ER visit, this demonstrated a 6 mm stone, close to your right UVJ. You have been given a strainer, please use every time you use the bathroom to make sure that the kidney stone has passed. At 6 mm, it is highly likely that the stone may not pass on its own accord, and you might need surgical instrumentation to help pass the stone. Recommend that you increase your oral fluid intake to try to help the stone pass . You have been given a few different medications, 1 will be for pain (percocet) , 1 will be for anti-inflammatory purposes (ibuprofen), 1 will be for nausea (Zofran-ondansetron), and one will be to help the stone pass (Flomax- tamsulosin). These medications have been electronically prescribed to the [facility] pharmacy located near [facility]. Your case was discussed with urology at [facility] [place] in [place], Dr. Sanchez the urologist does think that you should be able to be seen by his nurse practitioner, Tatum Loredo on Saturday, January 30, 2021, he does recommend that you call [phone], tomorrow morning to obtain an appointment with Ms. Loredo for Saturday. You can tell them that you need ER follow-up, and that a referral should have been placed by [facility]. If you should develop any fever, worsening sick-like symptoms, or you are unable to urinate, you will need to return to the ER for ongoing management, and possibly more urgent surgical management. Please return to the ED if your symptoms change or worsen. Sepsis Event Note (ED) - Evaluation Sepsis Screening Result: No Definite Risk - Focused Exam Vital Signs: Vital Signs Temp Pulse Resp BP Pulse Ox 01/25/21 16:39 97 F 75 16 169/114 H 100 - My Orders Last 24 Hours: My Active Orders 01/25/21 16:50 Strain Urine [RC] ASDIRECTED 01/25/21 16:51 Peripheral IV Care [RC] . DIRECTED Sodium Chloride 0.9% [Saline Flush] 10 ml FLUSH ASDIRECTED PRN Peripheral IV Insertion Adult [OM.PC] Routine 01/25/21 17:23 CULTURE URINE [MREF] Urgent - Assessment/Plan Last 24 Hours: My Active Orders 01/25/21 16:50 Strain Urine [RC] ASDIRECTED 01/25/21 16:51 Peripheral IV Care [RC] . DIRECTED Sodium Chloride 0.9% [Saline Flush] 10 ml FLUSH ASDIRECTED PRN Peripheral IV Insertion Adult [OM.PC] Routine 01/25/21 17:23 CULTURE URINE [MREF] Urgent
[2021-01-25] MEDS ORDERED: Tamsulosin 0.4 MG Cap.ER PO ONE (17:21)
--- NOTE | 2021-01-25 17:42 | CT ---
CT abdomen and pelvis Technique: Multiple axial sections were obtained from above the dome of the diaphragm inferiorly through the pubic symphysis. Intravenous and oral contrast were not utilized. Study has been performed as a ureteral stone protocol. Comparison: Prior CT abdomen and pelvis exam of 07/11/20. Findings: Hydronephrosis is noted of the right kidney. Dilated right ureter is noted. There is a small calcification being seen within the right renal pelvis compatible with nonobstructing stone measuring about 4 mm. Within the distal right ureter there is an obstructing stone measuring 6 mm. This obstructing stone is approximately 2 cm from the UVJ. Three nonobstructing calculi are seen within the left kidney. Largest stone on the left side measures 8 mm. Two very small stones are noted within the right kidney measuring in the 1.5-2 mm range. Right kidney is enlarged compatible with the obstruction. Visualized lung bases are clear. Noncontrast appearance of the liver and spleen appear within normal limits. Adrenal glands show no discrete nodule. Pancreas shows no abnormality. Gallbladder contains no calcified gallstones., Aorta shows no aneurysm. No retroperitoneal adenopathy or mesenteric abnormalities are seen. Appendix is seen which is normal. No pelvic mass or adenopathy is seen. Bone window settings were reviewed which show no acute osseous finding. Impression: 1. Obstructing stone within the distal right ureter measuring 6 mm. Smaller nonobstructing stone is noted within the right renal pelvis measuring 4 mm. Right kidney is enlarged compatible with the obstruction. 2. Nonobstructing calculi within both kidneys. 3. Other portions of the noncontrast CT study of the abdomen and pelvis appear unremarkable. Diagnostic code #3
[2021-01-25] MEDS ORDERED: Ketorolac 30 MG/ML SDV IVPUSH ONE (18:19)
== END 2021-01-25 18:56 | disposition home or self-care (01) ==
LOC: JD.ED 16:32
DX: N13.8 Other obstructive and reflux uropathy (principal); N20.2 Calculus of kidney with calculus of ureter; Z88.8 Allergy status to other drugs, medicaments and biological substances; Z72.0 Tobacco use; Z87.442 Personal history of urinary calculi
CPT/HCPCS: 36415; 74176; 80053; 81001; 85025; 87086; 96374; 96375; 96376; 99284; A9270; J1170; J1885; J2405; J7030

== ENCOUNTER 2022-02-20 16:24 | Emergency (ER) | payer BC ==
[2022-02-20] MEDS ORDERED: Diphtheria,Pertussis(Acell),Tetanus Vaccine 0.5 ML Syringe IM ONE (16:40)
[2022-02-20] MEDS ORDERED: Ketorolac 60 MG/2 ML SDV IM ONE (16:40)
[2022-02-20 18:06] VITALS: BP 171/108; PULSE 62
== END 2022-02-20 17:56 | disposition home or self-care (01) ==
LOC: JD.ED 16:24
DX: S61.202A Unspecified open wound of right middle finger without damage to nail, initial encounter (principal); F17.210 Nicotine dependence, cigarettes, uncomplicated; Z23 Encounter for immunization; Z88.8 Allergy status to other drugs, medicaments and biological substances; W26.8XXA Contact with other sharp object(s), not elsewhere classified, initial encounter; Y92.009 Unspecified place in unspecified non-institutional (private) residence as the place of occurrence of the external cause
CPT/HCPCS: 90471; 90715; 96372; 99282; J1885

== ENCOUNTER 2022-07-21 19:30 | Emergency (ER) | payer OTHER ==
[2022-07-21 20:11] VITALS: BP 185/107; PULSE 88
[2022-07-21 20:31] LABS: ESTIMATED GFR 69 mL/min (>60)
[2022-07-21] MEDS ORDERED: Potassium Chloride 20 MEQ Tab.ER PO ONE (20:43)
== END 2022-07-21 21:10 | disposition home or self-care (01) ==
LOC: JD.ED 19:30
DX: N20.1 Calculus of ureter (principal); R03.0 Elevated blood-pressure reading, without diagnosis of hypertension; Z88.8 Allergy status to other drugs, medicaments and biological substances; Z72.0 Tobacco use
CPT/HCPCS: 36415; 80053; 81001; 85025; 87086; 99284; A9270; 99283

== ENCOUNTER 2024-12-31 17:35 | Emergency (ER) | payer BC ==
[2024-12-31] MEDS ORDERED: Sodium Chloride 0.9% 10 ML Syringe FLUSH PRN (18:01)
[2024-12-31 18:10] LABS: BASOPHILS ABSOLUTE AUTO 0.1 K/mm3 (0.0-0.2); BASOPHILS PERCENT AUTO 0.6 % (0.0-1.0); EOSINOPHILS ABSOLUTE AUTO 0.0 K/mm3 (0.0-0.4); EOSINOPHILS PERCENT AUTO 0.4 % (0.0-6.0); IMMATURE GRAN ABSOLUTE AUTO 0.03 K/mm3 (0.00-0.05); IMMATURE GRAN PERCENT AUTO 0.3 % (0.0-0.4); LYMPHOCYTES ABSOLUTE AUTO 2.2 K/mm3 (1.0-4.8); LYMPHOCYTES PERCENT AUTO 23.5 % (24.0-44.0); MEAN PLATELET VOLUME 9.9 fl (9.4-12.3); MONOCYTES ABSOLUTE AUTO 0.4 K/mm3 (0.0-0.8); MONOCYTES PERCENT AUTO 4.7 % (0.0-8.0); NEUTROPHILS ABSOLUTE AUTO 6.5 K/mm3 (1.8-7.7); NEUTROPHILS PERCENT AUTO 70.5 % (41.0-71.0); NRBC ABSOLUTE 0.00 (0.00-0.02); NRBC PERCENT 0.0 % (0.0-0.2); PLATELET COUNT,PLT 297 K/mm3 (150-400); RED BLOOD CELL COUNT 4.32 M/mm3 (4.10-5.30); WHITE BLOOD CELL COUNT,WBC 9.30 K/mm3 (3.9-11.3)
[2024-12-31 18:12] LABS: APPEARANCE,URINE CLEAR (Clear); GLUCOSE,URINE NEGATIVE (Negative); OCCULT BLOOD,URINE 3+ (Negative)
[2024-12-31 18:25] LABS: A/G RATIO 1.1 (1-2); ALANINE AMINOTRANSFERASE,ALT 24.0 U/L (14-59); ASPARTATE AMNIOTRANSFERASE,AST 16.0 U/L (15-37); BILIRUBIN TOTAL 0.1 mg/dL (0.2-1.0); BLOOD UREA NITROGEN,BUN 14.0 mg/dL (7-18); CARBON DIOXIDE,CO2 23.0 mEq/L (21-32); CHLORIDE,CL 102.0 mEq/L (98-107); CREATININE 0.9 mg/dL (0.55-1.02); EST CRCL DRUG DOSING (CG) 62.63 mL/min; ESTIMATED GFR 76.0 mL/min (>60); GLUCOSE RANDOM 157.0 mg/dL (70-99); POTASSIUM,K 2.8 mEq/L (3.5-5.1); PROTEIN TOTAL,TP 7.8 g/dl (6.4-8.2); SODIUM,NA 139.0 mEq/L (136-145)
[2024-12-31 18:33] LABS: EPITHELIAL CELLS,URINE 0-5 /hpf (0-5)
[2024-12-31 20:25] VITALS: BP 115/84; PULSE 84
[2024-12-31] MEDS: Potassium Bicarbonate/Cit Ac 20 MEQ Effervescent Tab PO ONE (21:10)
== END 2024-12-31 19:35 | disposition home or self-care (01) ==
LOC: JD.ED 17:35
DX: R31.0 Gross hematuria (principal); F17.200 Nicotine dependence, unspecified, uncomplicated; Z88.8 Allergy status to other drugs, medicaments and biological substances; Z79.890 Hormone replacement therapy; Z79.899 Other long term (current) drug therapy
CPT/HCPCS: 36415; 74018; 80053; 81001; 85025; 87086; 99284; A9270

== ENCOUNTER 2025-03-04 20:45 | Emergency (ER) | payer BC ==
[2025-03-04] MEDS ORDERED: Sodium Chloride 0.9% 10 ML Syringe FLUSH PRN (21:05)
[2025-03-04 21:16] LABS: BASOPHILS ABSOLUTE AUTO 0.1 K/mm3 (0.0-0.2); BASOPHILS PERCENT AUTO 0.4 % (0.0-1.0); EOSINOPHILS ABSOLUTE AUTO 0.3 K/mm3 (0.0-0.4); EOSINOPHILS PERCENT AUTO 2.1 % (0.0-6.0); IMMATURE GRAN ABSOLUTE AUTO 0.04 K/mm3 (0.00-0.05); IMMATURE GRAN PERCENT AUTO 0.3 % (0.0-0.4); LYMPHOCYTES ABSOLUTE AUTO 2.2 K/mm3 (1.0-4.8); LYMPHOCYTES PERCENT AUTO 17.2 % (24.0-44.0); MEAN PLATELET VOLUME 9.9 fl (9.4-12.3); MONOCYTES ABSOLUTE AUTO 0.8 K/mm3 (0.0-0.8); MONOCYTES PERCENT AUTO 6.6 % (0.0-8.0); NEUTROPHILS ABSOLUTE AUTO 9.3 K/mm3 (1.8-7.7); NEUTROPHILS PERCENT AUTO 73.4 % (41.0-71.0); NRBC ABSOLUTE 0.00 (0.00-0.02); NRBC PERCENT 0.0 % (0.0-0.2); PLATELET COUNT,PLT 263 K/mm3 (150-400); RED BLOOD CELL COUNT 4.16 M/mm3 (4.10-5.30); WHITE BLOOD CELL COUNT,WBC 12.68 K/mm3 (3.9-11.3)
[2025-03-04] MEDS ORDERED: Naloxone 0.4 MG/ML SDV IVPUSH PRN (21:26)
[2025-03-04] MEDS: Ondansetron 4 MG/2 ML SDV IVPUSH ONE (21:40)
[2025-03-04] MEDS: Ketorolac 30 MG/ML SDV IVPUSH ONE (21:40)
[2025-03-04 21:41] LABS: A/G RATIO 1.0 (1-2); ALANINE AMINOTRANSFERASE,ALT 21 U/L (14-59); ASPARTATE AMNIOTRANSFERASE,AST 18 U/L (15-37); BILIRUBIN TOTAL 0.4 mg/dL (0.2-1.0); BLOOD UREA NITROGEN,BUN 15 mg/dL (7-18); CARBON DIOXIDE,CO2 23 mEq/L (21-32); CHLORIDE,CL 105 mEq/L (98-107); CREATININE 1.3 mg/dL (0.55-1.02); ESTIMATED GFR 49 mL/min (>60); GLUCOSE RANDOM 104 mg/dL (70-99); POTASSIUM,K 3.2 mEq/L (3.5-5.1); PROTEIN TOTAL,TP 7.4 g/dl (6.4-8.2); SODIUM,NA 140 mEq/L (136-145)
[2025-03-04 22:36] VITALS: BP 170/109; PULSE 78
[2025-03-04 23:00] LABS: APPEARANCE,URINE CLEAR (Clear); GLUCOSE,URINE NEGATIVE (Negative); OCCULT BLOOD,URINE 2+ (Negative)
[2025-03-04 23:19] LABS: EPITHELIAL CELLS,URINE 0-5 /hpf (0-5)
== END 2025-03-05 00:22 | disposition home or self-care (01) ==
LOC: JD.ED 20:45
DX: N13.2 Hydronephrosis with renal and ureteral calculous obstruction (principal); Z88.8 Allergy status to other drugs, medicaments and biological substances; Z79.890 Hormone replacement therapy; Z79.899 Other long term (current) drug therapy
CPT/HCPCS: 36415; 74176; 80053; 81001; 85025; 96374; 96375; 99284; A9270; J1885; J2270; J2405; J7030